=== PATIENT | male | born 1970 | race Hispanic/Latino ===

== ENCOUNTER 2020-12-14 14:10 | Inpatient (IN) | payer OTHER, SELFPAY ==
[2020-12-14 14:31] LABS: #Eosinphils 0.3 thou/uL (0.0-0.7); #Lymphocytes 3.7 thou/uL (1.20-3.40); #Monocytes 0.9 thou/uL (0.11-0.59); #Neutrophils 5.2 thou/uL (1.40-6.50); %Basophils 0.3 % (0.0-1.0); %Eosinophils 2.7 % (0.0-10.0); %Monocytes 8.5 % (0.0-10.0); %Neutrophils 51.4 % (42.0-75.0); Hemoglobin 15.7 g/dL (14.0-18.0); Mean Corpuscular HGB CONC 34.9 g/dL (32.0-36.0); Mean Corpuscular Hemoglobin 32.6 pg (27.0-31.0); Mean Corpuscular Volume 93.3 fL (78.0-98.0); Mean Platelet Volume 6.8 fL (7.4-10.4); Platelet Count 302 thou/uL (130-400); RBC Distribution Width 11.8 % (11.5-14.5); Red Blood Cell (RBC) Count 4.81 mill/uL (4.70-6.10); White Blood Cell (WBC) Count 10.1 thou/uL (4.8-10.8)
[2020-12-14 14:56] LABS: ALT (SGPT) 25 U/L (8-55); AST (SGOT) 25 U/L (5-34); Albumin 4.6 g/dL (3.5-5.0); Alkaline Phosphatase 102 U/L (40-110); Anion Gap 14 mmol/L (10-20); BUN (Urea Nitrogen) 14 mg/dL (8.9-20.6); Bilirubin, Total 0.3 mg/dL (0.2-1.2); Calc. Creatinine Clearance 0 mL/min (70-130); Calcium 9.8 mg/dL (7.8-10.44); Carbon Dioxide 23 mmol/L (22-29); Chloride 105 mmol/L (98-107); Globulin 3.6 g/dL (2.4-3.5); Glucose 159 mg/dL (70-105); Lipase 41 U/L (8-78); Potassium 3.3 mmol/L (3.5-5.1); Protein, Total 8.2 g/dL (6.0-8.3); Sodium 139 mmol/L (136-145)
[2020-12-14] MEDS ORDERED: Mag-Al 1200 mg/1200 mg/30 ML UDCUP ONE (15:03)
[2020-12-14] MEDS ORDERED: Lidocaine Viscous Sol 2% 15 ml UD Cup ONE (15:03)
[2020-12-14] MEDS ORDERED: Aspirin Chewable 81 MG TAB ONE (15:09)
[2020-12-14 15:18] LABS: CKMB 2.8 ng/mL (0-6.6)
[2020-12-14] MEDS ORDERED: Acetaminophen 650 MG Suppository PR PRN (16:53)
[2020-12-14] MEDS ORDERED: Nitroglycerin 0.4 MG TAB (25 Tab Bottle) SL PRN (16:53)
[2020-12-14] MEDS ORDERED: Acetaminophen 325 MG TAB PO PRN (16:53)
[2020-12-14 16:54] VITALS: BMI 30.4
[2020-12-14 18:01] LABS: Troponin I 3.328 ng/mL (< 0.028)
[2020-12-14] MEDS ORDERED: Enoxaparin Sodium 40 MG/0.4 ML SYRINGE SC SCH (18:30)
[2020-12-14] MEDS ORDERED: Electrolyte Replacement Protocol 1 EACH FS SCH (18:30)
[2020-12-14] MEDS ORDERED: Metoprolol Tartrate 25 MG TAB PO SCH (18:30)
[2020-12-14] MEDS ORDERED: Potassium Chloride 20 MEQ TAB PO SCH (18:30)
[2020-12-14 20:56] LABS: Troponin I 9.768 ng/mL (< 0.028)
[2020-12-14] MEDS ORDERED: Atorvastatin Calcium 40 MG TAB PO SCH (21:00)
[2020-12-14] MEDS ORDERED: Enoxaparin Sodium 80 MG/0.8 ML SYRINGE SC SCH (21:00)
[2020-12-14] MEDS: Metoprolol Tartrate 25 MG TAB PO SCH (21:10)
[2020-12-14] MEDS: Pantoprazole 40 MG VIAL IVP SCH (21:11)
[2020-12-14 23:35] LABS: SARS-CoV-2 PCR by NAA DETECTED (NotDetected)
[2020-12-15 05:05] LABS: #Basophils 0.1 thou/uL (0.0-0.2); #Eosinphils 0.1 thou/uL (0.0-0.7); #Lymphocytes 2.3 thou/uL (1.20-3.40); #Monocytes 0.8 thou/uL (0.11-0.59); #Neutrophils 6.6 thou/uL (1.40-6.50); %Basophils 0.9 % (0.0-1.0); %Eosinophils 1.3 % (0.0-10.0); %Monocytes 8.2 % (0.0-10.0); %Neutrophils 66.7 % (42.0-75.0); Hemoglobin 15.2 g/dL (14.0-18.0); Mean Corpuscular HGB CONC 33.5 g/dL (32.0-36.0); Mean Corpuscular Hemoglobin 31.3 pg (27.0-31.0); Mean Corpuscular Volume 93.4 fL (78.0-98.0); Platelet Count 302 thou/uL (130-400); RBC Distribution Width 11.9 % (11.5-14.5); Red Blood Cell (RBC) Count 4.87 mill/uL (4.70-6.10); White Blood Cell (WBC) Count 9.9 thou/uL (4.8-10.8)
[2020-12-15 05:07] LABS: Hemoglobin 14.9 g/dL (14.0-18.0); Platelet Count 295 thou/uL (130-400)
[2020-12-15 05:12] LABS: Hemoglobin A1c 5.1 % (4.0-6.0)
[2020-12-15 05:33] LABS: Anion Gap 14 mmol/L (10-20); BUN (Urea Nitrogen) 11 mg/dL (8.9-20.6); Calc. Creatinine Clearance 109 mL/min (70-130); Carbon Dioxide 22 mmol/L (22-29); Cardiac Risk 4.6 (Less than 4.5); Chloride 107 mmol/L (98-107); Cholesterol 194 mg/dl (< 200 Desired); Glucose 93 mg/dL (70-105); HDL Cholesterol 42 mg/dL (>60 Neg Risk); LDL Cholesterol, Calculated 133 mg/dL; Potassium 4.6 mmol/L (3.5-5.1); Sodium 138 mmol/L (136-145); Triglycerides 97 mg/dL (Less than 150)
[2020-12-15] MEDS ORDERED: Magnesium 2 GM/50 ML 2 GM in Premix Bag 1 BAG IVPB SCH (06:30)
[2020-12-15] MEDS ORDERED: Aspirin Chewable 81 MG TAB PO SCH (09:00)
[2020-12-15] MEDS: Metoprolol Tartrate 25 MG TAB PO SCH ×2 (09:05→21:42)
[2020-12-15] MEDS ORDERED: Iopamidol 370 76% 100 ML VIAL ONE (09:06)
[2020-12-15] MEDS: Pantoprazole 40 MG VIAL IVP SCH ×2 (09:06→21:43)
[2020-12-15] MEDS ORDERED: Sodium Chloride 0.9% 1,000 ML IV SCH ×2 (11:30→15:15)
[2020-12-15] MEDS ORDERED: Lidocaine 1% (PF) 30 ML VIAL ONE (13:37)
[2020-12-15] MEDS ORDERED: Fentanyl 100 MCG/2 ML VIAL ONE (14:06)
[2020-12-15] MEDS ORDERED: Midazolam HCl 2 mg/2 ml Vial ONE (14:06)
[2020-12-15] MEDS ORDERED: Adenosine 6 MG/2 ML VIAL ONE (14:20)
[2020-12-15] MEDS ORDERED: Nitroglycerin 100MG/250ML BOT 250 ML ONE (14:20)
[2020-12-15] MEDS ORDERED: Verapamil 5 MG/2 ML VIAL ONE (14:20)
[2020-12-15] MEDS ORDERED: Heparin 10,000 UNITS/ 10 ML VIAL ONE (14:20)
[2020-12-15] MEDS ORDERED: Clopidogrel Bisulfate 300 MG TAB ONE (14:32)
[2020-12-15] MEDS ORDERED: FLU VACC QS2020-21(6MOS UP)/PF 60 MCG/0.5 ML SYRINGE IM ONE (17:15)
[2020-12-15] MEDS ORDERED: Atorvastatin Calcium 40 MG TAB PO SCH (21:00)
[2020-12-16 05:26] LABS: #Basophils 0.1 thou/uL (0.0-0.2); #Eosinphils 0.2 thou/uL (0.0-0.7); #Lymphocytes 2.2 thou/uL (1.20-3.40); #Neutrophils 6.8 thou/uL (1.40-6.50); %Basophils 0.6 % (0.0-1.0); %Lymphocytes 21.6 % (21.0-51.0); %Monocytes 9.6 % (0.0-10.0); %Neutrophils 66.2 % (42.0-75.0); Hemoglobin 14.1 g/dL (14.0-18.0); Mean Corpuscular HGB CONC 33.2 g/dL (32.0-36.0); Mean Corpuscular Hemoglobin 31.3 pg (27.0-31.0); Mean Corpuscular Volume 94.2 fL (78.0-98.0); Mean Platelet Volume 6.9 fL (7.4-10.4); Platelet Count 268 thou/uL (130-400); RBC Distribution Width 11.9 % (11.5-14.5); Red Blood Cell (RBC) Count 4.52 mill/uL (4.70-6.10); White Blood Cell (WBC) Count 10.3 thou/uL (4.8-10.8)
[2020-12-16 05:46] LABS: ALT (SGPT) 20 U/L (8-55); AST (SGOT) 42 U/L (5-34); Albumin 3.7 g/dL (3.5-5.0); Alkaline Phosphatase 69 U/L (40-110); Anion Gap 9 mmol/L (10-20); BUN (Urea Nitrogen) 13 mg/dL (8.9-20.6); Bilirubin, Total 0.8 mg/dL (0.2-1.2); Calc. Creatinine Clearance 99 mL/min (70-130); Calcium 8.8 mg/dL (7.8-10.44); Carbon Dioxide 26 mmol/L (22-29); Chloride 107 mmol/L (98-107); Glucose 89 mg/dL (70-105); Potassium 4.7 mmol/L (3.5-5.1); Protein, Total 6.7 g/dL (6.0-8.3); Sodium 137 mmol/L (136-145)
[2020-12-16] MEDS: Pantoprazole 40 MG VIAL IVP SCH (07:58)
[2020-12-16] MEDS: Metoprolol Tartrate 25 MG TAB PO SCH (07:58)
[2020-12-16] MEDS ORDERED: Clopidogrel Bisulfate 75 MG TAB PO SCH (09:00)
[2020-12-16] MEDS ORDERED: Aspirin Chewable 81 MG TAB PO SCH (09:00)
[2020-12-16 13:10] VITALS: BP 134/77; TEMP 98.4
== END 2020-12-16 14:35 | disposition home or self-care (01) | DRG 246 ==
LOC: ERS 14:10 → 2NO 15:30 → 2SW 12-15 01:32
PROVIDERS: ADMIT Internal Medicine; ATTEND Internal Medicine
PROC: 027034Z Dilation of Coronary Artery, One Artery with Drug-eluting Intraluminal Device, Percutaneous Approach (ICD-10-PCS; principal; 2020-12-15)
PROC: 4A023N7 Measurement of Cardiac Sampling and Pressure, Left Heart, Percutaneous Approach (ICD-10-PCS; 2020-12-15)
PROC: B2111ZZ Fluoroscopy of Multiple Coronary Arteries using Low Osmolar Contrast (ICD-10-PCS; 2020-12-15)
DX: I21.4 Non-ST elevation (NSTEMI) myocardial infarction (principal); U07.1 COVID-19; I25.110 Atherosclerotic heart disease of native coronary artery with unstable angina pectoris; K21.9 Gastro-esophageal reflux disease without esophagitis; E87.6 Hypokalemia
CPT/HCPCS: 36415; 71045; 76942; 80048; 80053; 80061; 82553; 83036; 83690; 83735; 83880; 84443; 84484; 85025; 85347; 87635; 92928; 93005; 93010; 93458; 99152; 99153; C1874; C9113; C9600; J0153; J1644; J1650; J2001; J2250; J3010; J3475; Q9967; U0003; U0005

== ENCOUNTER 2023-08-06 15:50 | Emergency (ER) | payer OTHER ==
[2023-08-06] MEDS ORDERED: Cyclobenzaprine 10 MG TAB ONE (17:53)
[2023-08-06] MEDS ORDERED: Ketorolac Tromethamine 30 MG/ML VIAL ONE (17:53)
== END 2023-08-06 18:14 | disposition home or self-care (01) ==
LOC: ERS 15:50
DX: S39.012A Strain of muscle, fascia and tendon of lower back, initial encounter (principal); M54.42 Lumbago with sciatica, left side; X50.0XXA Overexertion from strenuous movement or load, initial encounter
CPT/HCPCS: 96372; 99283; J1885